=== PATIENT | male | born 1980 | race Caucasian/White ===

== ENCOUNTER 2022-04-06 11:21 | Emergency (ER) | payer SELFPAY ==
--- NOTE | ~2022-04-06 | XR_ITS ---
EXAMINATION: XR HAND, LEFT CLINICAL INFORMATION: Thumb pain COMPARISON: None TECHNIQUE: PA, lateral, and oblique views of the left hand. FINDINGS: No acute fracture or malalignment. Dorsal soft tissue swelling. No radiopaque foreign body. XR/XR hand LT 2V IMPRESSION: Dorsal soft tissue swelling. No acute osseous abnormality.
[2022-04-06 11:31] VITALS: BP 129/78; PULSE 70; RESP 18; TEMP 36.7; O2SAT 98; BMI 32.3
== END 2022-04-06 14:51 | disposition left against medical advice (07) ==
PROVIDERS: Emergency Provider Emergency Medicine; PCP Family Medicine
DX: M79.642 Pain in left hand (principal); M79.672 Pain in left foot
CPT/HCPCS: 73120; 99281; 99283